=== PATIENT | female | born 1980 | race Caucasian/White ===

== ENCOUNTER 2017-11-11 14:08 | Emergency (ER) | payer MEDICAID ==
[2017-11-11] MEDS ORDERED: NS 1000 ML 1,000 ML ONE (14:12)
[2017-11-11 14:26] VITALS: BP 119/82; BMI 33.5
[2017-11-11] MEDS ORDERED: NS 1000 ML 1,000 ML IV ONE (14:27)
--- NOTE | 2017-11-11 14:28 | DR.GENAD ---
PE - Vital Signs Vitals: Pulse Rate 119 Respiratory Rate 22 Blood Pressure 119/82 O2 Sat by Pulse Oximetry 98 - Discharge Plan Condition: Stable - Follow ups/Referrals Follow ups/Referrals: NFD,None [Primary Care Provider] - 3 days - Instructions
[2017-11-11 14:41] LABS: BASOPHILS # (AUTO) 0.2 X10^3/uL (0.0-0.1); BASOPHILS % (AUTO) 1.1 % (0.2-1.0); EOSINOPHILS # (AUTO) 0.4 x10^3/uL (0.0-0.2); HEMATOCRIT 34.3 % (36.0-47.0); HEMOGLOBIN 11.7 g/dL (12.0-16.0); LYMPHOCYTES # (AUTO) 2.5 X10^3/uL (1.3-2.9); LYMPHOCYTES % (AUTO) 16.5 % (21.0-51.0); MEAN CORPUSCULAR HEMOGLOBIN 27.9 pg (27.0-34.0); MEAN CORPUSCULAR HGB CONC 34.1 g/dL (33.0-35.0); MEAN CORPUSCULAR VOLUME 81.8 fL (80.0-100.0); MEAN PLATELET VOLUME 11.1 fL (7.4-11.0); MONOCYTES # (AUTO) 0.8 x10^3/uL (0.3-0.8); MONOCYTES % (AUTO) 5.4 % (0.0-13.0); NEUTROPHILS # (AUTO) 11.1 x10^3/uL (2.2-4.8); PLATELET COUNT 136 X10^3/uL (150.0-450.0); RED BLOOD COUNT 4.19 X10^6/uL (3.5-5.4); RED CELL DISTRIBUTION WIDTH 16.4 % (11.6-16.5)
[2017-11-11 14:49] LABS: BLOOD UREA NITROGEN 6 mg/dL (7-18); CALCIUM 9.3 mg/dL (8.5-10.1); CARBON DIOXIDE 25.6 mmol/L (21-32); CHLORIDE 100 mmol/L (98-107); COR NA(FOR HYPERGLY) 137 mmol/L (136-145); CREATININE 0.73 mg/dL (0.55-1.02); SODIUM 136 mmol/L (136-145); eGFR BLACK RACES > 60 (>60); eGFR NON BLACK RACES > 60 (>60)
[2017-11-11 14:53] LABS: BILIRUBIN,URINE NEGATIVE (NEGATIVE); BLOOD/HEMOGLOBIN,URINE NEGATIVE (NEGATIVE); GLUCOSE, URINE NEGATIVE (NEGATIVE); KETONES,URINE NEGATIVE (NEGATIVE); LEUKOCYTE ESTERASE ,URINE 1+ (NEGATIVE); NITRITES,URINE NEGATIVE (NEGATIVE); PROTEIN,URINE 2+ (NEGATIVE); UROBILINOGEN,URINE NORMAL (NORMAL)
[2017-11-11 15:04] LABS: APPEARANCE,URINE SLIGHTLY HAZY (CLEAR); COLOR,URINE YELLOW (YELLOW)
--- NOTE | 2017-11-11 15:09 | US ---
Ultrasound pelvis Indication: 38 week with no care. Hypertension. Technique: Dynamic grayscale Doppler imaging through the pelvis using a transabdominal approach. Findings: There is a single living intrauterine with cardiac activity of 159 beats per mulu te identified. The fetus is cephalic in position. Four-chamber heart, three-vessel cord grossly raiza l amniotic fluid documented. Measurements are as follows: BPD 9.5 cm. HC: 34.5 cm HC: 33.0 cm FL: 7.3 cm Estimated gestational age is thirty-eight weeks, 1 days . Estimated weight is 3423 g. Uterine fibroid noted at the fundus. Impression: Limited evaluation shows single living intrauterine as above. No detail analysi s of anatomy performed. Reported By:
[2017-11-11 15:34] LABS: RBC,URINE NONE SEEN /HPF (NONE SEEN)
[2017-11-11 15:35] LABS: BACTERIA,URINE TRACE /HPF (NEGATIVE); SQUAMOUS EPITHELIAL CELL,UR MODERATE /HPF (NEGATIVE)
== END 2017-11-11 15:35 | disposition home or self-care (01) ==
LOC: ER 14:17
DX: R55 Syncope and collapse (principal); Z3A.00 Weeks of gestation of pregnancy not specified
CPT/HCPCS: 36415; 76815; 80048; 80307; 81001; 83020; 85025; 86592; 86850; 86900; 86901; 96365; 99284; A4222; G0434

== ENCOUNTER 2017-11-24 06:41 | Inpatient (IN) | payer OTHER ==
[2017-11-24] MEDS ORDERED: ANCEF 1 GM IV PREMIX* 1 GM/50 ML BAG IV ONE (06:50)
[2017-11-24] MEDS ORDERED: ANCEF VIAL 1 GM 1 GM in NS 50 ML IV + SPIKE MINIBAG* 50 ML IV PRN (06:51)
[2017-11-24] MEDS ORDERED: D5 1/2 NS 1000 ML 1,000 ML IV ONE (06:51)
[2017-11-24] MEDS ORDERED: D5 1/2 NS 1000 ML 1,000 ML IV SCH (07:00)
[2017-11-24] MEDS ORDERED: LR 1000 ML IV 1,000 ML IV ONE (07:17)
[2017-11-24 08:30] LABS: BILIRUBIN,URINE NEGATIVE (NEGATIVE); BLOOD/HEMOGLOBIN,URINE NEGATIVE (NEGATIVE); GLUCOSE, URINE NEGATIVE (NEGATIVE); KETONES,URINE NEGATIVE (NEGATIVE); LEUKOCYTE ESTERASE ,URINE NEGATIVE (NEGATIVE); NITRITES,URINE NEGATIVE (NEGATIVE); PROTEIN,URINE NEGATIVE (NEGATIVE); UROBILINOGEN,URINE NORMAL (NORMAL)
[2017-11-24 08:34] LABS: APPEARANCE,URINE CLEAR (CLEAR); COLOR,URINE PALE YELLOW (YELLOW)
[2017-11-24] MEDS ORDERED: NS IRRIGATION 1000 ML 1,000 ML IR ONE (08:35)
[2017-11-24] MEDS ORDERED: PHENERGAN INJ 25 MG IVP PRN (08:59)
[2017-11-24] MEDS ORDERED: BENADRYL INJ 50 MG VIAL IVP PRN (08:59)
[2017-11-24] MEDS ORDERED: DILAUDID INJ IVP PRN (08:59)
[2017-11-24] MEDS ORDERED: REGLAN INJ 10 MG VIAL IVP PRN (08:59)
[2017-11-24] MEDS ORDERED: ZOFRAN INJ 4 MG VIAL IVP PRN (08:59)
[2017-11-24] MEDS ORDERED: D5 1/2 NS 1L W PITOCIN 20 UNITS/L 20 UNITS/1,000 ML BAG IV ONE (09:04)
[2017-11-24] MEDS ORDERED: EPHEDRINE SULFATE INJ ONE (09:14)
[2017-11-24] MEDS ORDERED: PITOCIN ONE (09:14)
[2017-11-24] MEDS ORDERED: MARCAINE SPINAL ONE (09:14)
[2017-11-24] MEDS ORDERED: XYLOCAINE 1 % (PLAIN) ONE (09:14)
[2017-11-24] MEDS ORDERED: VERSED ONE (09:14)
[2017-11-24] MEDS ORDERED: ADACEL TDaP IM ONE (09:50)
[2017-11-24] MEDS ORDERED: TORADOL 30 MG VIAL IVP PRN (09:50)
[2017-11-24] MEDS ORDERED: MYLICON TAB 80 MG CHEW PO PRN (09:50)
[2017-11-24] MEDS ORDERED: D5 1/2 NS 1000 ML 1,000 ML with PITOCIN 20 UNITS IV SCH ×2 (09:50)
[2017-11-24] MEDS: NORCO 5/325 MG TAB PO PRN ×2 (10:17→17:10)
[2017-11-24] MEDS: PRENATAL PLUS PO SCH (10:45)
[2017-11-24] MEDS: ZANTAC PO SCH ×2 (10:45→20:33)
[2017-11-24] MEDS: MOTRIN TAB 800 MG PO PRN ×2 (11:35→20:31)
[2017-11-24] MEDS ORDERED: AMBIEN PO PRN (20:41)
[2017-11-24] MEDS ORDERED: NORCO 5/325 MG TAB PO PRN (21:24)
[2017-11-25] MEDS: MOTRIN TAB 800 MG PO PRN ×2 (04:20→16:18)
[2017-11-25 05:33] LABS: HEMATOCRIT 32.9 % (36.0-47.0); HEMOGLOBIN 10.8 g/dL (12.0-16.0)
[2017-11-25] MEDS: ZANTAC PO SCH ×2 (09:39→21:00)
[2017-11-25] MEDS: PRENATAL PLUS PO SCH (09:39)
[2017-11-26] MEDS: MOTRIN TAB 800 MG PO PRN ×2 (02:15→09:37)
[2017-11-26] MEDS: PRENATAL PLUS PO SCH (09:37)
[2017-11-26] MEDS: ZANTAC PO SCH (09:37)
[2017-11-26 11:11] VITALS: BP 130/73
== END 2017-11-26 11:48 | disposition home or self-care (01) | DRG 775 ==
LOC: LD 06:41 → MED/SURG 09:50
PROVIDERS: ADMIT Obstetrics & Gynecology Obstetrics; ATTEND Obstetrics & Gynecology Obstetrics
PROC: 0UB70ZZ Excision of Bilateral Fallopian Tubes, Open Approach (ICD-10-PCS; 2017-11-24)
PROC: 3E0234Z Introduction of Serum, Toxoid and Vaccine into Muscle, Percutaneous Approach (ICD-10-PCS; 2017-11-24)
PROC: 10D00Z1 Extraction of Products of Conception, Low, Open Approach (ICD-10-PCS; principal; 2017-11-24 07:30)
DX: O34.211 Maternal care for low transverse scar from previous cesarean delivery (principal); Z37.0 Single live birth; N85.8 Other specified noninflammatory disorders of uterus; Z30.2 Encounter for sterilization; O09.33 Supervision of pregnancy with insufficient antenatal care, third trimester; Z3A.40 40 weeks gestation of pregnancy
CPT/HCPCS: 36415; 81003; 85014; 85018; 86701; 86850; 86900; 86901; A4216; A4222; S0197; J0690; J1885; J2001; J2250; J2590; J7042; J7120